=== PATIENT | female | born 1965 | race Caucasian/White ===

== ENCOUNTER 2019-04-02 23:14 | Emergency (ER) | payer BC ==
[~2019-04-02] VITALS: Ht 157.5 cm; Wt 64.9 kg
[2019-04-03] MEDS ORDERED: KEFLEX500 MG PO (00:32)
[2019-04-03] MEDS ORDERED: HYDROCODONE-ACE15 M3 PO (00:32)
== END 2019-04-03 00:49 | disposition home or self-care (01) ==
LOC: ED 23:14
DX: L98.499 Non-pressure chronic ulcer of skin of other sites with unspecified severity (principal); K12.1 Other forms of stomatitis
CPT/HCPCS: 99283